=== PATIENT | female | born 1965 | race Hispanic/Latino ===

== ENCOUNTER 2019-06-18 22:21 | Emergency (ER) | payer BC, SELFPAY ==
[2019-06-19 00:35] LABS: Urine Blood NEGATIVE (NEG); Urine Glucose NEGATIVE (NEG); Urine Protein 1+ (NEG); Urine Specific Gravity >1.030 (1.005-1.030)
[2019-06-19 00:45] LABS: Urine Bacteria <20 /HPF (<20); Urine Culture Reflex Order NOT NEEDED; Urine RBC <5 /HPF (NONE SEEN)
[2019-06-19 01:45] LABS: Absolute Lymphocytes (CBC) 2.3 K/uL (0.7-4.9); Basophils % 0.3 % (0-1.3); Hematocrit 41.3 % (36.0-45.0); Lymphocytes % 33.5 % (15.3-44.8); MPV 10.1 fL (7.6-11.3); RBC Red Blood Cell Count 4.61 M/uL (3.86-4.86)
[2019-06-19 01:58] LABS: ALT/SGPT 78 U/L (12-78); AST/SGOT 45 U/L (15-37); Albumin 3.3 g/dL (3.4-5.0); Alkaline Phosphatase 108 U/L (45-117); BUN Blood Urea Nitrogen 20 mg/dL (7-18); Bicarbonate 27 mmol/L (21-32); Bilirubin Direct 0.1 mg/dL (0-0.2); Bilirubin Total 0.3 mg/dL (0.2-1.0); Glucose Level 195 mg/dL (74-106); Lipase 212 U/L (73-393); Potassium 3.7 mmol/L (3.5-5.1); Protein, Total 7.3 g/dL (6.4-8.2); Sodium Level 142 mmol/L (136-145)
--- NOTE | 2019-06-19 05:21 | ER ---
Nurse's Notes [facility] Name: Shanell Luna Age: 54 yrs Sex: Female : 1965 Arrival Date: 06/18/2019 Time: 22:24 Bed 16 Private MD: Diagnosis: Unspecified abdominal pain;Diarrhea, unspecified Presentation: 06/17 22:48 Chief complaint: Patient states: Abdominal pain for a week with nausea. Pt reports ao abdominal cramps and also c/o diarrhea. Coronavirus screen: Proceed with normal triage. Ebola Screen: Patient negative for fever greater than or equal to 101.5 degrees Fahrenheit, and additional compatible Ebola Virus Disease symptoms Patient denies exposure to infectious person. Patient denies travel to an Ebola-affected area in the 21 days before illness onset. Initial Sepsis Screen: Does the patient meet any 2 criteria? No. Patient's initial sepsis screen is negative. Does the patient have a suspected source of infection? No. Patient's initial sepsis screen is negative. Risk Assessment: Do you want to hurt yourself or someone else? Patient reports no desire to harm self or others. Onset of symptoms is unknown. 22:48 Method Of Arrival: Ambulatory ao 22:48 Acuity: AGNIESZKA 3 ao Triage Assessment: 22:54 General: Appears in no apparent distress. comfortable, Behavior is calm, cooperative, ao appropriate for age, quiet. Pain: Complains of pain in abdomen Pain does not radiate. Pain currently is 5 out of 10 on a pain scale. Neuro: Level of Consciousness is awake, alert, Oriented to person, place, time, situation, Appropriate for age. Cardiovascular: Capillary refill < 3 seconds Patient's skin is warm and dry. GI: Abdomen is non-distended. : No signs and/or symptoms were reported regarding the genitourinary system. 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 - Social history:: Smoking status: Patient denies any tobacco usage or history of. Patient uses alcohol, but reports only rare drinking. Patient/guardian denies using street drugs, IV drugs. Screenin/14 00:30 Abuse screen: Denies threats or abuse. Nutritional screening: No deficits noted. vc Tuberculosis screening: No symptoms or risk factors identified. Fall Risk None identified. Assessment: 00:30 GI: Bowel sounds present X 4 quads. Abd is soft Abd is non tender X 4 quads. vc 00:30 General: Appears in no apparent distress. comfortable, Behavior is calm, cooperative, vc appropriate for age. Pain: Complains of pain in abdomen Pain currently is 3 out of 10 on a pain scale. Quality of pain is described as sharp, stabbing, squeezing, Pain began 2-3 days ago. Neuro: Level of Consciousness is awake, alert, obeys commands. Cardiovascular: Capillary refill < 3 seconds Patient's skin is warm and dry. Respiratory: Airway is patent Respiratory effort is even, unlabored, Respiratory pattern is regular, symmetrical. : No signs and/or symptoms were reported regarding the genitourinary system. EENT: No signs and/or symptoms were reported regarding the EENT system. Derm: No signs and/or symptoms reported regarding the dermatologic system. Musculoskeletal: Circulation, motion, and sensation intact. Range of motion: intact in all extremities. 01:30 Reassessment: Patient appears in no apparent distress at this time. Patient and/or vc family updated on plan of care and expected duration. Pain level reassessed. Patient is alert, oriented x 3, equal unlabored respirations, skin warm/dry/pink. 02:17 Reassessment: Patient appears in no apparent distress at this time. Patient and/or ao family updated on plan of care and expected duration. Pain level reassessed. Waiting on results. 03:36 Reassessment: Patient appears in no apparent distress at this time. Patient is alert, ao oriented x 3, equal unlabored respirations, skin warm/dry/pink. 04:40 Reassessment: Patient appears in no apparent distress at this time. Patient and/or ao family updated on plan of care and expected duration. Pain level reassessed. Waiting on dispo orders. 05:15 Reassessment: Patient appears in no apparent distress at this time. Provider at bedside.ao 05:33 Reassessment: DC given to patient. Pt agree with POC and to follow up with PCP. ao Vital Signs: 06/17 22:48 BP 123 / 88; Pulse 97; Resp 16; Temp 98.1(TE); Pulse Ox 97% on R/A; Weight 97.52 kg; ao Height 5 ft. 4 in. (162.56 cm); Pain 8/10; 06/18 02:17 BP 106 / 60; Pulse 60; Resp 18; Pulse Ox 97% ; ao 03:30 BP 114 / 78; Pulse 62; Resp 18; Pulse Ox 98% ; ao 05:15 BP 106 / 76; Pulse 64; Resp 16; Temp 98.0; Pulse Ox 100% on R/A; ao 06/17 22:48 Body Mass Index 36.90 (97.52 kg, 162.56 cm) ao ED Course: 06/17 22:24 Patient arrived in ED. cl3 22:51 Triage completed. ao 22:54 Arm band placed on right wrist. Patient placed in an exam room, Patient notified of ao wait time. 06/18 00:29 Martha Irvin, SHAJI is Primary Nurse. vc 00:30 Patient has correct armband on for positive identification. Placed in gown. Bed in low vc position. Call light in reach. Pulse ox on. NIBP on. 00:34 Santino Ochoa MD is Attending Physician. 7 01:00 Warm blanket given. vc 01:26 Inserted saline lock: 20 gauge in left forearm, using aseptic technique. Blood vc collected. 02:10 Report given to SHAJI Johnston. vc 02:52 CT Abd/Pelvis - IV Contrast Only In Process Unspecified. EDMS 05:15 No provider procedures requiring assistance completed. ao 05:32 IV discontinued, intact, bleeding controlled, No redness/swelling at site. Pressure ao dressing applied. Administered Medications: No medications were administered Outcome: 05:20 Discharge ordered by . [facility] 05:31 Discharged to home ambulatory. ao 05:31 Condition: stable 05:31 Discharge instructions given to patient, Instructed on discharge instructions, follow up and referral plans. Demonstrated understanding of instructions, follow-up care, medications, Prescriptions given X 3. 05:34 Patient left the ED. ao Signatures: Dispatcher [facility] CenterMS Tinajero, SHAJI Johnston RN, Charde cl3 Martha Irvin RN RN Santino Cancino MD MD mh7
--- NOTE | 2019-06-19 05:21 | EDPHYS ---
Physician Documentation [facility] Name: Shanell Luna Age: 54 yrs Sex: Female : 1965 Arrival Date: 06/18/2019 Time: 22:24 Bed 16 Private MD: ED Physician Santino Ochoa HPI: 06/18 02:53 This 54 yrs old Female presents to ER via Ambulatory with complaints of mh7 Abdominal Pain. 02:53 The patient presents with abdominal pain in the lower abdomen. Onset: The mh7 symptoms/episode began/occurred 3 day(s) ago. The symptoms do not radiate. Associated signs and symptoms: Pertinent positives: diarrhea, Pertinent negatives: nausea and vomiting, anorexia, blood in stools, chest pain, constipation, dysuria, fever, headache, hematuria, nausea, palpitations, shortness of breath, vaginal discharge, vomiting, vomiting blood. The symptoms are described as achy, intermittent. Modifying factors: The symptoms are alleviated by nothing, the symptoms are aggravated by nothing. Severity of pain: At its worst the pain was moderate yesterday, in the emergency department the pain has improved moderately. 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 - Social history:: Smoking status: Patient denies any tobacco usage or history of. Patient uses alcohol, but reports only rare drinking. Patient/guardian denies using street drugs, IV drugs. ROS: 06/18 02:53 Constitutional: Negative for fever, chills, and weight loss, Eyes: Negative for injury, mh7 pain, redness, and discharge, ENT: Negative for injury, pain, and discharge, Neck: Negative for injury, pain, and swelling, Cardiovascular: Negative for chest pain, palpitations, and edema, Respiratory: Negative for shortness of breath, cough, wheezing, and pleuritic chest pain, Back: Negative for injury and pain, : Negative for injury, bleeding, discharge, and swelling, MS/Extremity: Negative for injury and deformity, Skin: Negative for injury, rash, and discoloration, Neuro: Negative for headache, weakness, numbness, tingling, and seizure, Psych: Negative for depression, anxiety, suicide ideation, homicidal ideation, and hallucinations, Allergy/Immunology: Negative for hives, rash, and allergies, Endocrine: Negative for neck swelling, polydipsia, polyuria, polyphagia, and marked weight changes, Hematologic/Lymphatic: Negative for swollen nodes, abnormal bleeding, and unusual bruising. Exam: 02:53 Constitutional: This is a well developed, well nourished patient who is awake, alert, mh7 and in no acute distress. Head/Face: Normocephalic, atraumatic. Eyes: Pupils equal round and reactive to light, extra-ocular motions intact. Lids and lashes normal. Conjunctiva and sclera are non-icteric and not injected. Cornea within normal limits. Periorbital areas with no swelling, redness, or edema. ENT: Nares patent. No nasal discharge, no septal abnormalities noted. Tympanic membranes are normal and external auditory canals are clear. Oropharynx with no redness, swelling, or masses, exudates, or evidence of obstruction, uvula midline. Mucous membranes moist. Neck: Trachea midline, no thyromegaly or masses palpated, and no cervical lymphadenopathy. Supple, full range of motion without nuchal rigidity, or vertebral point tenderness. No Meningismus. Chest/axilla: Normal chest wall appearance and motion. Nontender with no deformity. No lesions are appreciated. Cardiovascular: Regular rate and rhythm with a normal S1 and S2. No gallops, murmurs, or rubs. Normal PMI, no JVD. No pulse deficits. Respiratory: Lungs have equal breath sounds bilaterally, clear to auscultation and percussion. No rales, rhonchi or wheezes noted. No increased work of breathing, no retractions or nasal flaring. 02:53 Back: No spinal tenderness. No costovertebral tenderness. Full range of motion. 02:53 Skin: Warm, dry with normal turgor. Normal color with no rashes, no lesions, and no evidence of cellulitis. MS/ Extremity: Pulses equal, no cyanosis. Neurovascular intact. Full, normal range of motion. Neuro: Awake and alert, GCS 15, oriented to person, place, time, and situation. Cranial nerves II-XII grossly intact. Motor strength 5/5 in all extremities. Sensory grossly intact. Cerebellar exam normal. Normal gait. Psych: Awake, alert, with orientation to person, place and time. Behavior, mood, and affect are within normal limits. 02:53 Abdomen/GI: Inspection: abdomen appears normal, Bowel sounds: normal, in all quadrants, Palpation: moderate abdominal tenderness, in the suprapubic area, right lower quadrant and left lower quadrant, Rectal exam: the exam is deferred, because of patient request, Indicators: McBurney's point is not tender, Valles's sign is negative, Rovsing's sign is negative, Obturator sign is negative, Psoas sign is negative, Liver: no appreciated palpable abnormalities, Hernia: not appreciated. 02:53 : Pelvic Exam: The exam is refused by the patient/guardian. The risks and consequences are understood by the patient. Vital Signs: 06/17 22:48 BP 123 / 88; Pulse 97; Resp 16; Temp 98.1(TE); Pulse Ox 97% on R/A; Weight 97.52 kg; ao Height 5 ft. 4 in. (162.56 cm); Pain 8/10; 06/18 02:17 BP 106 / 60; Pulse 60; Resp 18; Pulse Ox 97% ; ao 03:30 BP 114 / 78; Pulse 62; Resp 18; Pulse Ox 98% ; ao 05:15 BP 106 / 76; Pulse 64; Resp 16; Temp 98.0; Pulse Ox 100% on R/A; ao 06/17 22:48 Body Mass Index 36.90 (97.52 kg, 162.56 cm) ao MDM: 00:34 Patient medically screened. mh7 05:17 Differential diagnosis: appendicitis, bowel obstruction, diverticulitis, non-specific mh7 abd pain, urinary tract infection. Data reviewed: vital signs, nurses notes, lab test result(s), radiologic studies, CT scan. Data interpreted: Pulse oximetry: on room air is 100 %. Interpretation: normal. 06/17 22:27 Order name: Urine Culture [facility] 06/17 22:27 Order name: Urine Microscopic Only; Complete Time: 05:01 06/18 00:15 Order name: Urine Dipstick--Ancillary (enter results); Complete Time: 05:01 mw2 06/18 00:52 Order name: Basic Metabolic Panel; Complete Time: 05: [facility] 06/18 00:52 Order name: CBC with Diff; Complete Time: 05: 06/18 00:52 Order name: Hepatic Function; Complete Time: 05: [facility] 06/17 22:27 Order name: Urine Dipstick-Ancillary (obtain specimen); Complete Time: 00:41 snw 06/18 00:52 Order name: Lipase; Complete Time: 05: [facility] 06/18 00:52 Order name: IV Saline Lock; Complete Time: 02:11 [facility] 06/18 00:52 Order name: Labs collected and sent; Complete Time: 02: [facility] 06/18 00:52 Order name: CT Abd/Pelvis - IV Contrast Only [facility] Administered Medications: No medications were administered Disposition: 06/19/19 05:20 Discharged to Home. Impression: Unspecified abdominal pain, Diarrhea, unspecified. - Condition is Stable. - Discharge Instructions: Abdominal Pain, Adult, Diarrhea, Adult. - Prescriptions for Bentyl 20 mg Oral Tablet - take 1 tablet by ORAL route every 6 hours As needed; 20 tablet. Cipro 500 mg Oral Tablet - take 1 tablet by ORAL route every 12 hours for 5 days; 10 tablet. Zofran 4 mg Oral Tablet - take 1 tablet by ORAL route every 12 hours As needed; 6 tablet. - Medication Reconciliation Form, Thank You Letter, Antibiotic Education, Prescription Opioid Use form. - Follow up: Private Physician; When: 1 - 2 days; Reason: Worsening of condition, Re-evaluation by your physician. - Problem is new. - Symptoms have improved. Signatures: Dispatcher [employer] EDLA Linda Cat FNP-C SPIRITUAL ADVISOR-Csnw Presotn Tinajero, RN RN ao Santino Ochoa MD MD 7 Corrections: (The following items were deleted from the chart) 05:34 05:20 06/19/2019 05:20 Discharged to Home. Impression: Unspecified abdominal pain; ao Diarrhea, unspecified. Condition is Stable. Forms are Medication Reconciliation Form, Thank You Letter, Antibiotic Education, Prescription Opioid Use. Follow up: Private Physician; When: 1 - 2 days; Reason: Worsening of condition, Re-evaluation by your physician. Problem is new. Symptoms have improved. mh7
[2019-06-19 06:26] VITALS: BP 106/76; TEMP 98; O2SAT 100
--- NOTE | 2019-06-19 12:07 | RAD REPORT ---
EXAM DESCRIPTION: Abdomen Pelvis W Contrast CLINICAL HISTORY: ABD PAIN COMPARISON: None. TECHNIQUE: CT ABDOMEN PELVIS WITH IV CONTRAST on 06/19/2019 12:52 AM CDT This exam was performed according to our departmental dose-optimization program, which includes autom ated exposure control, adjustment of the mA and/or kV according to patient size and/or use of iterati ve reconstruction technique. FINDINGS: Lower lungs are clear. Abdomen: Liver is enlarged and fatty in attenuation. There is no biliary dilatation. Gallbladder is d ecompressed. The pancreas and spleen are normal in appearance. The adrenal glands and kidneys are unr emarkable. Abdominal aorta is normal in course and caliber without aneurysm. There is no free air. There is no r etroperitoneal adenopathy.There is a small fat-containing umbilical hernia. Pelvis: There is no bowel obstruction. Urinary bladder is unremarkable. There is no free fluid. Uteru s is normal in size. Appendix is normal. Skeleton: There are no acute osseous findings. No suspicious bony lesions. IMPRESSION: No acute process. Electronically signed by: Alex Morillo MD 06/19/2019 2:59 AM CDT Due to temporary technical issues with the PACS/Fluency reporting system, reports are being signed by the in house radiologist as a courtesy to ensure prompt reporting. The interpreting radiologist is f ully responsible for the content of the report.
== END 2019-06-19 05:34 | disposition home or self-care (01) ==
LOC: ER 22:21
DX: R19.7 Diarrhea, unspecified (principal); I10 Essential (primary) hypertension; E11.9 Type 2 diabetes mellitus without complications
CPT/HCPCS: 36415; 74177; 80048; 80076; 81003; 81015; 83690; 85025; 87086; 87088; 99284; Q9967

== ENCOUNTER 2022-11-23 06:30 | Day surgery (SDC) | payer OTHER, SELFPAY ==
[2022-11-20 09:29] LABS: Absolute Lymphocytes (CBC) 2.1 K/uL (0.7-4.9); Lymphocytes % 34.7 % (15.3-44.8); MCV 88.4 fL (80-100); MPV 9.2 fL (7.6-11.3); Platelets 143 thou/uL (152-406); RBC Red Blood Cell Count 5.09 M/uL (3.86-4.86)
[2022-11-20 09:35] LABS: Protime INR 0.97
--- NOTE | 2022-11-20 12:24 | RAD REPORT ---
EXAM DESCRIPTION: RAD - Chest Pa And Lat (2 Views) - 11/20/2022 9:34 am CLINICAL HISTORY: Pre op pending heart catheterization. Hypertension COMPARISON: Chest Single View dated 11/13/2021 TECHNIQUE: PA and lateral views of the chest were obtained. FINDINGS: The lungs are clear. Heart size is normal and central vasculature is within normal limits. No pleural effusion or pneumothorax seen. No acute bony finding noted. IMPRESSION: No acute cardiopulmonary process.
--- NOTE | 2022-11-21 11:22 | EKG ---
Test Date: 2022-11-20 Test Time: 09:15:45 Shoe Stitcher: ILENE MEASUREMENT RESULTS: Intervals: Rate: 72 ME: 134 QRSD: 92 QT: 342 QTc: 374 [place]: P: 26 ME: 134 QRS: -41 T: 14 INTERPRETIVE STATEMENTS: Normal sinus rhythm Left axis deviation Minimal voltage criteria for LVH, may be normal variant Abnormal ECG No previous ECG available for comparison Electronically Signed On 11-21-22 11:18:56 CDT by Jas Higginbotham
[~2022-11-23 06:30] MED LIST: HEPA 1000U/500MLS 0 UNIT/0 ML BAG IV ONE; LIDOCAINE 1% 20 ML MDV ONE
[2022-11-23] MEDS ORDERED: HEPA 1000U/500MLS 2,000 UNIT/1,000 ML BAG IV ONE (06:59)
[2022-11-23] MEDS ORDERED: LIDOCAINE 1% 20 ML MDV ONE (06:59)
[2022-11-23] MEDS ORDERED: MIDAZOLAM HCL 2 MG/2 ML INJ ONE (07:00)
[2022-11-23] MEDS ORDERED: HEPARIN 10,000 UNIT/10 ML VIAL IV ONE (07:00)
[2022-11-23] MEDS ORDERED: VERAPAMIL HCL 10 MG/4 ML VIAL IV ONE (07:00)
[2022-11-23] MEDS ORDERED: HEPARIN 5000 UNIT/ML 1 ML VIAL ONE (07:00)
[2022-11-23] MEDS ORDERED: FENTANYL CITR 100 MCG/2 ML ONE (07:00)
[2022-11-23] MEDS ORDERED: NITROGLYCERIN/D5W 50 MG/250 ML BTL IV ONE (07:01)
[2022-11-23] MEDS ORDERED: NA CHLORIDE 0.9% 500 ML ONE (07:05)
[2022-11-23 08:10] VITALS: TEMP 98.2
--- NOTE | 2022-11-23 08:17 | OP ---
Date of Procedure: 11/23/2022 Surgeon: REGINALDO BONILLA Procedures Performed: 1.Selective coronary angiogram. 2.Left heart catheterization. Indication: Chest pain with abnormal stress test suggestive of unstable angina. Access: Right radial artery, 6-Montenegr[place], closed with TR band. Complications: None. Bleeding: Less than 20 mL. Anesthesia: Sedation is none due to low blood pressure. Description Of Procedure: After risks, benefits, and alternatives were explained, the patient agreed to procedure and signed informed consent. The patient was brought into cardiac catheterization labo ratory, prepped and draped in usual sterile fashion. Then, I accessed right radial artery using AIM atric micropuncture kit. Placed 6-[place] 5-Mont[place]grin [place] 4 catheter into aortic root, over J-wire, engaged left main and the right coronary artery, took standard views. Catheter was pushed o aris the wire into the LV, measured the LVEDP. Pullback not recording great and removed the catheter and sheath and placed TR band with good hemostasis. Findings: 1.Left main normal. 2.LAD moderate size vessels with widely patent proximal LAD stent. No disease otherwise. Diagonal branches are free of disease. 3.Left circumflex is moderate size and is normal. 4.RCA is large vessel, dominant and normal. 5.Normal LVEDP at 10 mmHg. Conclusion: 1.Widely patent proximal LAD stent and no coronary artery disease elsewhere. 2.Normal LVEDP. Plan: Medical management. SR/MODL Voice ID: [id number] Report ID: [id number]
[2022-11-23 08:33] VITALS: O2SAT 98
[2022-11-23 09:17] VITALS: BP 113/68
== END 2022-11-23 09:30 | disposition home or self-care (01) ==
LOC: CCL 06:30
PROVIDERS: ATTEND Internal Medicine
PROC: 4A023N7 Measurement of Cardiac Sampling and Pressure, Left Heart, Percutaneous Approach (ICD-10-PCS; principal; 2022-11-23)
PROC: B2111ZZ Fluoroscopy of Multiple Coronary Arteries using Low Osmolar Contrast (ICD-10-PCS; 2022-11-23)
DX: I25.10 Atherosclerotic heart disease of native coronary artery without angina pectoris (principal); I10 Essential (primary) hypertension; E78.2 Mixed hyperlipidemia; E11.9 Type 2 diabetes mellitus without complications; Z95.5 Presence of coronary angioplasty implant and graft; Z79.02 Long term (current) use of antithrombotics/antiplatelets; Z79.84 Long term (current) use of oral hypoglycemic drugs; Z79.899 Other long term (current) drug therapy
CPT/HCPCS: 93005; 85025; 80048; 36415; 83721; 85610; 82947; 85730; 71046; 93458; J1644; J2001; J7040; J2250; J3010

== ENCOUNTER 2024-01-20 09:09 | Emergency (ER) | payer OTHER ==
--- OUTSIDE RECORDS SUMMARY | 2024-01-20 09:13 | XMS REPORT | Continuity of Care Document ---
Author Name Unknown Address [address] [facility] [place] [address] [facility] thconnect Address [address] [facility] [place] [address] Care Team Providers Care Strap Sewer Name Role Phone PCP, PATIENT DOES NOT HAVE A Primary Care Physic miguel Unavailable Carlos Meza DO Attending Clinician [phone] CARLOS MEZA Attending Clinician Unavailable CARLOS MEZA Admitting Clinician Unavailable Payers Payer Name Policy Type Policy Number Effective Date Expirati on Date Source FORMERLY [facility] [id number] 2021 00:00:00 Problems Condition Name Condition Details Condition Category Status Onset Date Resolution Date Last Treatment Date Treating Clinician Comments Source Morbid obesity Morbid obesity Disease Active 05-11 00:00: 00 [facility] Contracept kat management Contracept kat management Disease Active 05-11 00:00: 00 [facility] Need for Tdap vaccinatio n Need for Tdap vaccinatio n Disease Active 05-11 00:00: 00 [facility] Tobacco use disorder Tobacco use disorder Disease Active 05-11 00:00: 00 [facility] Essential hypertensi on, benign Essential hypertensi on, benign Disease Active 05-11 00:00: 00 [facility] H/O tubal ligation H/O tubal ligation Disease Active 2016-0 4-06 00:00: 00 [facility] Allergies, Adverse Reactions, Alerts Allergy Name Allergy Type Status Severity Reaction(s) Onset Date Inactive Date Treating Clinician Comments Source NO KNOWN ALLERGIE S Drug Class Active [facility] Social History Social Habit Start Date Stop Date Quantity Comments Source History of tobacco use Light tobacco smoker [facility] Exposure to SARS-CoV-2 (event) 2021-12-03 00:00:00 2021-12-13 12:01:00 Not sure [facility] Alcohol intake 2015-06-30 00:00:00 2015-06-30 00:00:00 0 /d [facility] Tobacco use and exposure 2015-05-03 00:00:00 2015-05-03 00:00:00 Smokeless tobacco non-user [facility] Sex Ass[birth year] At 1965 00:00:00 1965 00:00:00 [facility] Smoking Status Start Date Stop Date Source Light tobacco smoker 2015-05-03 00:00:00 [facility] Medications Ordered Medication Name Filled Medication Name Start Date Stop Date Current Medication? Ordering Clinician Indication Dosage Frequency Signature (SIG) Comments Components Source chlorphenir amine 4 mg tablet 2021-02 00:00: 00 Yes [id number] 4mg Take 1 tablet by mouth every 6 (six) hours as needed for Allergies or Runny nose. [facility] calcium/mag nesium/zinc (CALCIUM-MA GNESUIUM-ZI NC) 333-133-5 mg Tab 2021-02 00:00: 00 Yes [id number] 1{each} Take 1 Each by mouth daily. [facility] benzonatate 100 mg capsule 2021-02 00:00: 00 Yes [id number] 100mg Take 1 capsule by mouth 3 (three) times daily as needed for Cough. [facility] vitamin D3-folic acid 125 mcg (5,000 unit)-1 mg Tab 2021-02 00:00: 00 01-13 05:59 :00 No [id number] 1{tbl} Take 1 tablet by mouth daily for 30 days. [facility] metFORMIN (GLUCOPHAGE ) 500 mg tablet 2016-0 5-25 10:46: 18 Yes 500mg Take 500 mg by mouth 2 (two) times daily with meals. [facility] Vital Signs Vital Name Observation Time Observation Value Comments Elie simms Systolic blood pressure 2021-12-13 18:01:00 143 mm[Hg] [facility] Diastolic blood pressure 2021-12-13 18:01:00 88 mm[Hg] [facility] Heart rate 2021-12-13 18:01:00 83 /min [facility] Body temperature 2021-12-13 18:01:00 36.61 Kayleigh [facility] Respiratory rate 2021-12-13 18:01:00 18 /min [facility] Body height 2021-12-13 18:01:00 162.6 cm [facility] Body weight 2021-12-13 18:01:00 102.513 kg [facility] BMI 2021-12-13 18:01:00 38.79 kg/m2 [facility] Oxygen saturation in Arterial blood by Pulse oximetry 2021-12-13 18:01:00 98 /min [facility] Procedures Procedure Date / Time Performed Performing Clinicia n Source XR CHEST 1 VW 2021-12-13 18:57:53 Carlos Meza [facility] TROPONIN I 2021-12-13 18:34:00 Carlos Meza [facility] COMP. METABOLIC PANEL (61438) 2021-12-13 18:34:00 Carlos Meza [facility] CBC WITH DIFF 2021-12-13 18:34:00 Singer [facility] RAPID INFLUENZA A/B 2021-12-13 18:34:00 Moi Meza [facility] N-TERMINAL PRO-BNP 2021-12-13 18:34:00 Singer Carlos [facility] COVID-19 (ID NOW RAPID TESTING) 2021-12-13 18:34:00 Carlos Meza [facility] CONSENT/REFUSAL FOR DIAGNOSIS AND TREATMENT 2021-12-13 17:57:40 Doctor Unassigned, [place] [facility] Encounters Start Date/Time End Date/Time Encounter Type Admission Type Attending [facility] Facility Care Department Encounter ID Source 2021-12-13 12:02:00 2021-12-13 14:03:00 Emergency Carlos Meza [facility] [id number] [facility] 2021-12-13 12:02:00 2021-12-13 14:03:00 Emergency X CARLOS MEZA [facility] ERT [id number] [facility] 2019-09-11 00:00:00 2019-09-11 00:00:00 Outpatient [facility] [id number] [facility] Results Test Description Test Time Test Comments Results Result Co mments Source [facility] [id number] 19:37:04* Test Item Value Reference Range Interpretation Comme nts NT-proBNP (test code = 9229549966) 212 pg/mL See_Comment H [Automated message] The system which generated this result transmitted reference range: <=125. The reference range was not used to interpret this result as normal/abnormal. KELSI (test code = KELSI) Biotin has been reported to cause a negative bias, interpret results relative to patient's use of biotin. Lab Interpretation (test code = 44941-3) [facility] (10466)2021-12-13 19:31:04* Test Item Value Reference Range Interpretation Comme nts NA (test code = 7601111135) 141 mmol/L 135-145 K (test code = 2738652098) 3.4 mmol/L 3.5-5.0 L CL (test code = 3773471353) 105 mmol/L 98-108 CO2 TOTAL (test code = 2648619732) 25 mmol/L 23-31 AGAP (test code = 1918047092) 2-16 BUN (test code = 7347486071) 9 mg/dL 7-23 GLUCOSE (test code = 8856162887) 309 mg/dL 70-110 H CREATININE (test code = 1049884583) 0.40 mg/dL 0.50-1.04 L TOTAL BILI (test code = 1878715948) 0.8 mg/dL 0.1-1.1 CALCIUM (test code = 0518179256) 8.9 mg/dL 8.6-10.6 T PROTEIN (test code = 8466640860) 6.2 g/dL 6.3-8.2 L ALBUMIN (test code = 0369762246) 3.8 g/dL 3.5-5.0 ALK PHOS (test code = 6553985287) 108 U/L 34-122 ALTv (test code = 1742-6) 30 U/L 5-35 AST(SGOT) (test code = 8098123217) 34 U/L 13-40 eGFR (test code = 2873828842) mL/min/1.73m2 KELSI (test code = KELSI) Association of Glomerular Filtration Rate (GFR) and Staging of Kidney Disease* + --+ --+ ------+| GFR (mL/min/1.73 m2) ?| With Kidney Damage ?| ?Without Kidney Damage+ --------+ --------+ +| ?>90 ?| ?Stage one ?| ? Normal ?+ ---+ ---+ -------+| ?60-89 ?| ?Stage two ?| ? Decreased GFR ? + --+ --+ ------+| ?30-59 ?| ?Stage three ?| ? Stage three ? + --+ --+ ------+| ?15-29 ?| ?Stage four ? | ? Stage four ?+ ---+ ---+ -------+| ?<15 (or dialysis) ? ?| ?Stage five ? | ? Stage five ?+ ---+ ---+ -------+ *Each stage assumes the associated GFR level has been in effect for at least three months. ?Stages 1 to 5, with or without kidney disease, indicate chronic kidney disease. Notes: Determination of stages one and two (with eGFR >59mL/min/1.73 m2) requires estimation of kidney damage for at least three months as defined by structural or functional abnormalities of the kidney, manifested by either:Pathological abnormalities or Markers of kidney damage (including abnormalities in the composition of the blood or urine or abnormalities in imaging tests). Lab Interpretation (test code = 70229-1) Abnormal [facility] WITH [id number] 18:50:40* Test Item Value Reference Range Interpretation Comme nts WBC (test code = 6690-2) See_Comment [Automated messa ge] The system which generated this result transmitted reference range: 4.30 - 11.10 10*3/?L. The reference range was not used to interpret this result as normal/abnormal. RBC (test code = 789-8) See_Comment [Automated messa ge] The system which generated this result transmitted reference range: 3.93 - 5.25 10*6/?L. The reference range was not used to interpret this result as normal/abnormal. HGB (test code = 718-7) 13.6 g/dL 11.6-15.0 HCT (test code = 4544-3) 38.2 % 35.7-45.2 MCV (test code = 787-2) 84.9 fL 80.6-95.5 MCH (test code = 785-6) 30.2 pg 25.9-32.8 MCHC (test code = 786-4) 35.6 g/dL 31.6-35.1 H RDW-SD (test code = 66907-4) 36.6 fL 39.0-49.9 L RDW-CV (test code = 788-0) 11.9 % 12.0-15.5 L PLT (test code = 777-3) See_Comment [Automated messa ge] The system which generated this result transmitted reference range: 166 - 358 10*3/?L. The reference range was not used to interpret this result as normal/abnormal. MPV (test code = 46363-4) 11.2 fL 9.5-12.9 NRBC/100 WBC (test code = 0579336564) See_Comment [Automated [employer] ssage] The system which generated this result transmitted reference range: 0.0 - 10.0 /100 WBCs. The reference range was not used to interpret this result as normal/abnormal. NRBC x10^3 (test code = 6977386856) See_Comment [Automated messa ge] The system which generated this result transmitted reference range: 10*3/?L. The reference range was not used to interpret this result as normal/abnormal. GRAN MAT (NEUT) % (test code = 770-8) 67.2 % IMM GRAN % (test code = 5454519315) 0.40 % LYMPH % (test code = 736-9) 21.6 % MONO % (test code = 5905-5) 5.5 % EOS % (test code = 713-8) 4.9 % BASO % (test code = 706-2) 0.4 % GRAN MAT x10^3(ANC) (test code = 3617996910) 3.30 10*3/uL 1.88-7.09 IMM GRAN x10^3 (test code = 1482089731) 0.00-0.06 LYMPH x10^3 (test code = 731-0) 1.06 10*3/uL 1.32-3.29 L MONO x10^3 (test code = 742-7) 0.27 10*3/uL 0.33-0.92 L EOS x10^3 (test code = 711-2) 0.24 10*3/uL 0.03-0.39 BASO x10^3 (test code = 704-7) 0.01-0.07 Lab Interpretation (test code = 44721-1) [facility]normal [facility] J[facility] [id number] 14:45:26- SCR MAMM BILATERAL JALEEL CAD DIGITALBILATERAL DIGITAL SCREENING MAMMOGRAM 3D/2D WITH CAD: 05/15/2018CLINICAL: Asymptomatic. Digital breast tomosynthesis was performed in addition to routine CC and MLO views. Current mammographic images were evaluated by either a [employer] M-Vu or an [employer] version 7.2 computer aided detection system. Comparison is made to exam dated 06/17/2015 mammogram - [facility]-Radiology File Room. There are scattered fibroglandular tissues in both breasts. There is a benign mass in the right breast, stable since 2016. No suspicious mass, architectural distortion, malignant type calcification, or lymph node abnormality detected. Breast architecture is stable compared to prior exams.IMPRESSION: BENIGNThere is no mammographic evidence of malignancy. Resume annual screening mammography in one year. Kandace Rodriguez M.D. cc/:05/27/2018 14:45:26 Entry: cc - 05/28/2018 12:02:48copy to: Leona DURÁN, [facility], [facility] [address], ph: [phone], fax: [phone] Technologist: Rola French MM, [facility] Mammographyletter sent: BIRADS 1-2 Normal Mammogram BI-RADS: 2 Benign"
--- NOTE | 2024-01-20 09:56 | RAD REPORT ---
Procedure: Chest Single View HISTORY: Chest pain COMPARISON: 2022 FINDINGS: The lungs appear clear of acute infiltrate. No significant pleural effusion noted. The heart is normal size. IMPRESSION: No acute abnormality is displayed.
[2024-01-20 10:08] LABS: Absolute Eosinophils 0.2 K/uL (0-0.5); Absolute Lymphocytes (CBC) 1.7 K/uL (0.7-4.9); Absolute Monocytes 0.4 K/uL (0.1-1.3); Absolute Neutrophil 2.8 K/uL (1.8-8.0); Basophils % 0.4 % (0-1.3); Eosinophils % 3.3 % (0-4.4); Hematocrit 42.5 % (36.0-45.0); Hemoglobin 14.2 g/dL (12.0-15.0); Lymphocytes % 33.4 % (15.3-44.8); MCH 29.7 pg (27.0-35.0); MCHC 33.4 g/dL (32.0-36.0); MPV 10.4 fL (7.6-11.3); Monocytes % 7.3 % (3.3-12.3); Neutrophils % 55.6 % (41.7-73.7); Platelets 132 thou/uL (152-406); RBC Red Blood Cell Count 4.78 M/uL (3.86-4.86); Red Cell Distribution Width 12.9 % (12.1-15.2)
[2024-01-20 10:13] LABS: PT Prothrombin Time 10.6 SECONDS (9.4-12.5); PTT, Activated Partial Thromb 30.4 SECONDS (24.3-36.9); Protime INR 0.94
[2024-01-20 10:25] LABS: Albumin 3.3 g/dL (3.4-5.0); Anion Gap 8.6 mEq/L (5.0-15.0); Bilirubin Total 0.8 mg/dL (0.2-1.0); Globulin 3.4 g/dL (2.3-3.5); Potassium 3.6 mEq/L (3.5-5.1); Protein, Total 6.7 g/dL (6.4-8.2)
--- NOTE | 2024-01-20 10:57 | RAD REPORT ---
EXAM: CT brain without contrast HISTORY: Numbness COMPARISON: None TECHNIQUE: Multiple contiguous axial images were obtained and a CT of the brain without contrast.. Sagittal and coronal reconstruction performed. Automated exposure control, adjustment of the mA and/or kV according to patient size, and/or iterative reconstruction. Unless otherwise specified, incidental f indings do not require dedicated imaging follow-up FINDINGS: An intracranial bleed is not seen Ventricles are normal caliber No extra-axial fluid collection noted No significant hypodensity within the brain Small amount of fluid within the left maxillary sinus may indicate acute sinusitis. IMPRESSION: No acute intracranial abnormality noted. If the patient continues to have symptoms to suggest an acute intracranial abnormality then MRI of th e brain would be recommended.
--- NOTE | 2024-01-20 11:13 | RAD REPORT ---
EXAMINATION: CTA HEAD CLINICAL INDICATION: Numbness TECHNIQUE: Axial CT images were obtained through the head after 100 cc Isovue-370 intravenous contras t utilizing angiographic protocol with 3D post-processing (maximum intensity projection images, volume rendered images and/or shaded surface rendered images). One or more of the following dose red uction techniques were used: Automated exposure control, adjustment of the mA and/or kV according to patient size, and/or iterative reconstruction. Unless otherwise specified, incidental findings do not require dedicated imaging follow-up. COMPARISON: None FINDINGS: Distal internal carotid, basilar, anterior cerebral, middle cerebral and posterior cerebral arteries do not demonstrate a significant stenosis An aneurysm not noted. No large vessel occlusion IMPRESSION: No acute vascular abnormality displayed
--- NOTE | 2024-01-20 11:14 | RAD REPORT ---
EXAMINATION: Neck Angio CLINICAL INDICATION: Numbness TECHNIQUE: Axial CT images were obtained from the aortic arch to the skull base after intravenous adm inistration of 100 cc Isovue-370 utilizing angiographic protocol. Multiplanar reformats, as well as 3D post-processing (maximum intensity projection images, volume rendered images and/or shaded surface rendered images) were generated and reviewed. One or more of the following dose reduction techniques were used: Automated exposure control, adjustment of the mA and/or kV according to patient size, and/or iterative reconstruction. Unless otherwise specified, incidental findings do not require dedicated imaging follow-up. COMPARISON: No prior exam. FINDINGS: The visualized aortic arch and great vessels do not demonstrate a significant abnormality Evaluation of a portion of the proximal right vertebral artery is limited secondary to adjacent dense opacification of contrast within the and adjacent vein. Remainder of the right vertebral artery unremarkable. Left vertebral artery unremarkable Common carotid, internal carotid and external carotid arteries bilaterally unremarkable Methods for NASCET criteria: Mild stenosis, 0% to 49%; Moderate stenosis 50% to 69%; Severe stenosis, 70% to 99% IMPRESSION: Limited evaluation of a portion of the right vertebral artery. Otherwise, unremarkable exam
--- NOTE | 2024-01-20 12:26 | ER ---
Nurse's Notes [facility] Name: Shanell Hernandez Age: 58 yrs Sex: Female : 1965 Arrival Date: 01/20/2024 Time: 09:09 Bed 15 Private MD: Diagnosis: Radiculopathy, cervical region;Acute maxillary sinusitis Presentation: 01/19 09:23 Chief complaint: Patient states: L side of body feels numb for 1 week, worse since ll1 yesterday. + NICOLE also. Gait steady. Coronavirus screen: Client denies travel out of the [place] in the last 14 days. At this time, the client does not indicate any symptoms associated with coronavirus-19. Ebola Screen: Patient denies travel to an Ebola-affected area in the 21 days before illness onset. Initial Sepsis Screen: Does the patient meet any 2 criteria? No. Patient's initial sepsis screen is negative. Does the patient have a suspected source of infection? No. Patient's initial sepsis screen is negative. Risk Assessment: Do you want to hurt yourself or someone else? Patient reports no desire to harm self or others. Onset of symptoms was January 13, 2024. 09:23 Method Of Arrival: Ambulatory ll1 09:23 Acuity: AGNIESZKA 3 ll1 Triage Assessment: 09:23 General: Appears in no apparent distress. Behavior is calm, cooperative, appropriate ll1 for age. Pain: Complains of pain in head Pain currently is 5 out of 10 on a pain scale. Quality of pain is described as aching, Pain began 1 week. Neuro: Reports headache numbness in left arm and left leg. 12:00 Pain: Also complains of no other associated symptoms. iw Historical: - Allergies: 09:23 No Known Allergies; ll1 - PMHx: 09:23 Diabetes - NIDDM; Hyperlipidemia; Hypertension; ll1 - Immunization history:: Adult Immunizations up to date. - Infectious Disease History:: Denies. - Social history:: Smoking status: Patient denies any tobacco usage or history of. Screenin:45 [facility] ED Fall Risk Assessment (Adult) History of falling in the last 3 months, db including since admission No falls in past 3 months (0 pts) Confusion or Disorientation No (0 pts) Intoxicated or Sedated No (0 pts) Impaired Gait No (0 pts) Mobility Assist Device Used No (0 pt) Altered Elimination No (0 pt) Score/Fall Risk Level 0 - 2 = Low Risk Oriented to surroundings, Maintained a safe environment. Abuse screen: Denies threats or abuse. Denies injuries from another. Nutritional screening: No deficits noted. Tuberculosis screening: No symptoms or risk factors identified. 11:27 [place] Swallow Protocol Exclusion Criteria: Exclusion Criteria Result: Proceed Brief iw Cognitive Screen What is your name? Normal, Where are you right now? Normal, What year is it? Normal. Oral Mechanism Examination Facial Symmetry: Normal, Motion: Normal, Lip Closure: Normal, Oral Mechanism Result: Normal. 3 oz Water Swallow Challenge: Pt able to drink all water without stopping, coughing, choking or throat clearing: Yes Result: PASS. Assessment: 09:45 Reassessment: Patient appears in no apparent distress at this time. Patient and/or db family updated on plan of care and expected duration. Pain level reassessed. Patient is alert, oriented x 3, equal unlabored respirations, skin warm/dry/pink. General: Appears in no apparent distress. comfortable. Pain: Denies pain. Neuro: Level of Consciousness is awake, alert, obeys commands, Oriented to person, place, time, situation. Respiratory: Airway is patent Respiratory effort is even, unlabored, Respiratory pattern is regular, symmetrical. 11:29 General: Appears in no apparent distress. Behavior is calm, cooperative. Pain:. Neuro: iw Level of Consciousness is awake, alert, obeys commands, Oriented to person, place, time, situation, Pmp are equal bilaterally Moves all extremities. Speech is normal, Facial symmetry appears normal, Numbness in anterior aspect of left shoulder, left hand and posterior aspect of left shoulder paresthesias in forehead, left ear, left latter-day, left occipital area and left base of the skull. GI: Abdomen is non-distended. Derm: Skin is intact, is healthy with good turgor. Musculoskeletal: Range of motion: intact in all extremities. 13:16 Reassessment: Patient appears in no apparent distress at this time. Patient and/or iw family updated on plan of care and expected duration. Pain level reassessed. Patient is alert, oriented x 3, equal unlabored respirations, skin warm/dry/pink. Vital Signs: 09:23 BP 137 / 87; Pulse 70; Resp 17; Temp 97.3(O); Pulse Ox 97% on R/A; Height 5 ft. 4 in. ; ll1 Pain 5/10; 09:45 BP 187 / 95; Pulse 68; Resp 18; Pulse Ox 97% ; db 11:51 BP 124 / 86; Pulse 65; Resp 16; Pulse Ox 95% on R/A; iw 13:16 BP 128 / 64; Pulse 65; Resp 16; Pulse Ox 98% on R/A; iw 09:23 Pain Scale: Adult ll1 ED Course: 09:13 Patient arrived in ED. al6 09:14 Juan Daniel Starr FNP-C is PHCP. dr5 09:14 Ventura Anne MD is Attending Physician. dr5 09:15 Arm band placed on Patient placed in an exam room, on a stretcher. ll1 09:25 Triage completed. ll1 09:45 Yeni Benites, RN is Primary Nurse. db 09:45 Patient has correct armband on for positive identification. Bed in low position. Call db light in reach. Side rails up X 1. Client placed on continuous cardiac and pulse oximetry monitoring. NIBP monitoring applied. psychiatric secretary on. Pulse ox on. NIBP on. Warm blanket given. Pillow given. 09:45 EKG done, by ED staff. tm3 09:50 Chest Single View XRAY In Process Unspecified. EDMS 10:01 Initial lab(s) drawn, by me, sent to lab. Inserted saline lock: 20 gauge in right tm3 antecubital area, using aseptic technique. 10:[address] via stretcher. db 10:48 CT Head Brain wo Cont In Process Unspecified. EDMS 10:50 CT Head Angio In Process Unspecified. EDMS 10:50 CT Neck Angio In Process Unspecified. EDMS 10:58 Jeanie Blum, RN is Primary Nurse. iw 13:16 No provider procedures requiring assistance completed. IV discontinued, intact, iw bleeding controlled, No redness/swelling at site. Pressure dressing applied. Administered Medications: No medications were administered Medication: 09:45 VIS not applicable for this client. db Outcome: 12:26 Discharge ordered by . dr5 13:17 Discharged to home ambulatory, iw 13:17 Condition: good 13:17 Discharge instructions given to patient, Instructed on discharge instructions, follow up and referral plans. Demonstrated understanding of instructions, follow-up care, medications, Prescriptions given X 3, 13:19 Patient left the ED. iw Signatures: Dispatcher [employer] EDMS Mc Tristani tm3 Jeanie Blum RN RN Malorie Lanza RN RN ll1 Yeni Benites, RN RN db Ro, Juan Daniel, BOAT MECHANIC-C BOAT MECHANIC-Cdr5 Reena Zhang
--- NOTE | 2024-01-20 12:26 | EDPHYS ---
Physician Documentation [facility] Name: Shanell Hernandez Age: 58 yrs Sex: Female : 1965 Arrival Date: 01/20/2024 Time: 09:09 Bed 15 Private MD: ED Physician Ventura Anne HPI: 01/19 09:33 This 58 yrs old Female presents to ER via Ambulatory with complaints of left dr5 side numbness, Headache. 09:33 Onset: The symptoms/episode began/occurred Numbness started 01/17/24 that is dr5 intermittent. She took ASA yesterday and numbness resolved.. Patient is a 48-year-old female with history of diabetes, hypertension, hyperlipidemia, cardiac stent coming in with left-sided shoulder numbness rating into the left fingers that started last . Patient reports that it resolved yesterday after taking aspirin, and came back this morning or worse with left shoulder pain and numbness radiating into the left fingers as well as rating down to her left toes. Patient denies dizziness. Patient reports intermittent headache, chest pain, cough.. 09:33 Patient is currently taking aspirin and Plavix daily. dr5 Historical: - Allergies: 09:23 No Known Allergies; ll1 - PMHx: 09:23 Diabetes - NIDDM; Hyperlipidemia; Hypertension; ll1 - Immunization history:: Adult Immunizations up to date. - Infectious Disease History:: Denies. - Social history:: Smoking status: Patient denies any tobacco usage or history of. ROS: 09:33 Constitutional: as per hpi dr5 Exam: 09:33 Constitutional: This is a well developed, well nourished patient who is awake, alert, dr5 and in no acute distress. Head/Face: Normocephalic, atraumatic. Eyes: Pupils equal round and reactive to light, extra-ocular motions intact. Lids and lashes normal. Conjunctiva and sclera are non-icteric and not injected. Cornea within normal limits. Periorbital areas with no swelling, redness, or edema. Chest/axilla: Normal chest wall appearance and motion. Nontender with no deformity. No lesions are appreciated. Cardiovascular: Regular rate and rhythm with a normal S1 and S2. Normal PMI, no JVD. No pulse deficits. Respiratory: Lungs have equal breath sounds bilaterally, clear to auscultation. No rales, rhonchi or wheezes noted. No increased work of breathing, no retractions or nasal flaring. 09:33 Neuro: Orientation: is normal, appropriate for stated age, Mentation: is normal, appropriate for stated age, Memory: is normal, immediate memory is intact, appropriate for stated age, Cranial nerves: grossly normal, no acute changes, CN II- XII are normal as tested, Cerebellar function: is grossly normal, no acute changes, Motor: is normal, Sensation: is normal, Gait: is steady, 12:27 Musculoskeletal/extremity: Extremities: ROM: no acute changes, intact in all dr5 extremities, Circulation is intact in all extremities. Tenderness to palpation over left shoulder. 5/5 strength of left arm. NVI. 2+ radial pulses on left arm. No drift. Vital Signs: 09:23 BP 137 / 87; Pulse 70; Resp 17; Temp 97.3(O); Pulse Ox 97% on R/A; Height 5 ft. 4 in. ; ll1 Pain 5/10; 09:45 BP 187 / 95; Pulse 68; Resp 18; Pulse Ox 97% ; db 11:51 BP 124 / 86; Pulse 65; Resp 16; Pulse Ox 95% on R/A; iw 13:16 BP 128 / 64; Pulse 65; Resp 16; Pulse Ox 98% on R/A; iw 09:23 Pain Scale: Adult ll1 MDM: 09:19 Medical Screening Exam initiated dr5 12:27 Differential diagnosis: viral Infection, bacterial infection, URI, CVA, TIA, Cervical dr5 Radiculopathy. Data reviewed: vital signs, nurses notes. I considered the following discharge prescriptions or medication management in the emergency department Medications were administered in the Emergency Department. See MAR. Care significantly affected by the following chronic conditions: Diabetes, Hypertension, Hyperlipidemia. Care significantly affected by the following Social Determinants of Health: Poor access to healthcare and/or lack of insurance, Poor access to transportation, Inadequate housing, Problems related to employment. Counseling: I had a detailed discussion with the patient and/or guardian regarding the historical points, exam findings, and any diagnostic results supporting the discharge/admit diagnosis, the presence of at least one elevated blood pressure reading (>120/80) during this emergency department visit, lab results, radiology results, the need for outpatient follow up, for definitive care, a family practitioner, a neurologist, to return to the emergency department if symptoms worsen or persist or if there are any questions or concerns that arise at home. ED course: court interpreter used on initial assessment and discharge. All labs and CT results went over with patient. Printed out all results and gave to patient to take to primary care doctor. Will cover sinusitis found on CT with Augmentin. Will trial short course of low-dose steroids and muscle relaxers to help with left-sided pinched nerve. All questions answered. Patient reports she is feeling much better without numbness... 01/19 09:31 Order name: CBC with Diff; Complete Time: 10:24 dr5 01/19 09:31 Order name: High Sensitivity Troponin; Complete Time: 10: dr5 01/19 09:31 Order name: Protime (+inr); Complete Time: 10:24 dr5 01/19 09:31 Order name: Ptt, Activated; Complete Time: 10:24 dr5 01/19 09:31 Order name: CMP; Complete Time: 10: dr5 01/19 10:11 Order name: Glucose, Ancillary Testing; Complete Time: 10:24 EDSC 01/19 09:31 Order name: CT Head Angio; Complete Time: 11:24 dr5 01/19 09:31 Order name: CT Neck Angio; Complete Time: 11:24 dr5 01/19 09:31 Order name: CT Head Brain wo Cont; Complete Time: 11:06 dr5 01/19 09:31 Order name: Chest Single View XRAY; Complete Time: 09:58 dr5 01/19 09:31 Order name: Cardiac monitoring; Complete Time: 10:20 dr5 01/19 09:31 Order name: EKG - Nurse/Tech; Complete Time: 09:45 dr5 01/19 09:31 Order name: IV Saline Lock; Complete Time: 10:20 dr5 01/19 09:31 Order name: Labs collected and sent; Complete Time: 10:20 dr5 01/19 09:31 Order name: O2 Per Protocol; Complete Time: 10:20 dr5 01/19 09:31 Order name: O2 Sat Monitoring; Complete Time: 10:20 dr5 01/19 09:31 Order name: Stroke Swallow Screen; Complete Time: 11:27 dr5 Administered Medications: No medications were administered Disposition Summary: 01/20/24 12:26 Discharge Ordered Notes: Location: Home dr5 Condition: Stable dr5 Diagnosis - Radiculopathy, cervical region dr5 - Acute maxillary sinusitis dr5 Followup: dr5 - With: Emergency Department - When: As needed - Reason: Worsening of condition Followup: dr5 - With: Private Physician - When: 1 - 2 days - Reason: Recheck today's complaints, Continuance of care, Re-evaluation by your physician Discharge Instructions: - Discharge Summary Sheet dr5 - Pinched Nerve dr5 - Sinusitis, Adult dr5 Forms: - Medication Reconciliation Form dr5 - Antibiotic Education dr5 - Patient Portal Instructions dr5 - Leadership Thank You Letter dr5 Prescriptions: - Augmentin 875-125 mg Oral Tablet - take 1 tablet ORAL route every 12 hours for 10 days; 20 tablet; Refills: 0, dr5 Product Selection Permitted - Prednisone 20 mg Oral Tablet - take 1 tablet ORAL route once daily for 5 days; 5 tablet; Refills: 0, Product dr5 Selection Permitted - Cyclobenzaprine 10 mg Oral Tablet - take 1 tablet ORAL route every 8 hours As needed; 30 tablet; Refills: 0, dr5 Product Selection Permitted Signatures: Dispatcher [employer] EDMS Malorie Claire RN RN ll1 Yeni Benites RN RN db Juan Daniel Starr, DIRECTOR STATISTICAL PROGRAMMING-C DIRECTOR STATISTICAL PROGRAMMING-Cdr5 Corrections: (The following items were deleted from the chart) 09:31 09:31 Head Angio+CT.RAD.BRZ ordered. EDMS EDMS 09:31 09:31 Neck Angio+CT.RAD.BRZ ordered. EDMS EDMS 09:32 09:32 Head Brain Wo Cont+CT.RAD.BRZ ordered. EDMS EDMS 09:32 09:32 Chest Single View+RAD.RAD.BRZ ordered. EDSC EDMS 10:20 09:31 Accucheck ordered. dr5 db 11:32 09:31 NPO ordered. dr5 iw
[2024-01-20 13:31] VITALS: TEMP 97.3
[2024-01-20 13:48] VITALS: BP 128/64; O2SAT 98
--- NOTE | 2024-01-22 12:04 | EKG ---
Test Date: 2024-01-20 Test Time: 09:42:44 Creative Coordinator: TM MEASUREMENT RESULTS: Intervals: Rate: 67 NM: 134 QRSD: 86 QT: 432 QTc: 456 [place]: P: 18 NM: 134 QRS: -24 T: -14 INTERPRETIVE STATEMENTS: Normal sinus rhythm Nonspecific T wave abnormality Abnormal ECG Compared to ECG 11/20/2022 09:15:45 T-wave abnormality now present Left-axis deviation no longer present Left ventricular hypertrophy no longer present Electronically Signed On 01-22-24 12:02:49 DIRECTOR OF SALES by Milton Mendoza
== END 2024-01-20 13:19 | disposition home or self-care (01) ==
LOC: ER 09:09
DX: J01.00 Acute maxillary sinusitis, unspecified (principal); M54.12 Radiculopathy, cervical region; E11.9 Type 2 diabetes mellitus without complications; I10 Essential (primary) hypertension
CPT/HCPCS: 93005; 85025; 36415; 85610; 82947; 85730; 84484; 80053; 70450; 70496; 70498; 71045; 99285; Q9967

== ENCOUNTER 2024-02-19 21:41 | Emergency (ER) | payer OTHER, SELFPAY ==
[2024-02-19 23:04] LABS: Absolute Eosinophils 0.2 K/uL (0-0.5); Absolute Lymphocytes (CBC) 4.3 K/uL (0.7-4.9); Absolute Monocytes 0.5 K/uL (0.1-1.3); Absolute Neutrophil 3.4 K/uL (1.8-8.0); Basophils % 0.4 % (0-1.3); Eosinophils % 2.1 % (0-4.4); Hematocrit 46.1 % (36.0-45.0); Hemoglobin 15.8 g/dL (12.0-15.0); Lymphocytes % 51.1 % (15.3-44.8); MCH 30.2 pg (27.0-35.0); MCHC 34.2 g/dL (32.0-36.0); MCV 88.5 fL (80-100); MPV 10.1 fL (7.6-11.3); Monocytes % 5.5 % (3.3-12.3); Neutrophils % 40.9 % (41.7-73.7); Nucleated Red Blood Cells % 0.1 % (0-0); Platelets 159 thou/uL (152-406); RBC Red Blood Cell Count 5.21 M/uL (3.86-4.86); Red Cell Distribution Width 13.3 % (12.1-15.2)
[2024-02-19 23:10] LABS: PT Prothrombin Time 10.4 SECONDS (9.4-12.5); PTT, Activated Partial Thromb 30.4 SECONDS (24.3-36.9); Protime INR 0.99
[2024-02-19 23:11] LABS: Specific Gravity 1.007 (1.005-1.030); Sqamous Epithelial <5 /HPF (None Seen); Urine Bacteria <20 /HPF (<20); Urine Bilirubin NEGATIVE (Negative); Urine Blood Negative (Negative); Urine Clarity Clear (Clear); Urine Color Colorless (Yellow); Urine Culture Reflex Order NOT NEEDED; Urine Glucose 4+ (Over) (Negative); Urine Ketones TRACE (Negative); Urine Microscopic Reflex YN ORDER UMIC; Urine Nitrite NEGATIVE (Negative); Urine Protein NEGATIVE (Negative); Urine RBC <5 /HPF (None Seen); Urine Urobilinogen Normal (Normal); Urine WBC <5 /HPF (<5); Urine pH 5.5 (5.0-7.0)
[2024-02-19 23:12] LABS: Specific Gravity 1.007 (1.005-1.030)
[2024-02-19 23:18] LABS: Barbiturates NEGATIVE (NEGATIVE); Benzodiazepines NEGATIVE (NEGATIVE); Cocaine NEGATIVE (NEGATIVE); METHAMPHETAM NEGATIVE (NEGATIVE); Methadone NEGATIVE (NEGATIVE); Opiates NEGATIVE (NEGATIVE); Phencyclidine NEGATIVE (NEGATIVE); THC Cannibis NEGATIVE (NEGATIVE)
[2024-02-19 23:22] LABS: ALT/SGPT 81 U/L (13-56); AST/SGOT 40 U/L (15-37); Albumin 3.6 g/dL (3.4-5.0); Albumin/Globulin Ratio 0.9 (1.1-1.8); Alkaline Phosphatase 132 U/L (45-117); Anion Gap 10.7 mEq/L (5.0-15.0); BUN Blood Urea Nitrogen 16 mg/dL (7-18); Bicarbonate 25 mEq/L (21-32); Bilirubin Total 0.3 mg/dL (0.2-1.0); Globulin 3.9 g/dL (2.3-3.5); Glomerular Filtration Rate 81 ml/min (=/>90); Glucose Level 328 mg/dL (74-106); Magnesium 2.1 mg/dL (1.6-2.4); NT PRO-BNP 19 pg/mL (<125); Potassium 3.7 mEq/L (3.5-5.1); Protein, Total 7.5 g/dL (6.4-8.2); Sodium Level 140 mEq/L (136-145); Troponin High Sensitivity 4.7 pg/mL (<58.9)
[2024-02-19 23:25] LABS: Bilirubin Direct < 0.2 mg/dL (0-0.2); Bilirubin Indirect, Calculated 0.1 mg/dL (0.2-0.8)
[2024-02-20] MEDS ORDERED: INSULIN REGULAR (HUMAN) 100 UNIT/ML ONE (00:37)
[2024-02-20] MEDS ORDERED: NA CHLORIDE 0.9% 500 ML ONE (00:37)
--- NOTE | 2024-02-20 00:45 | RAD REPORT ---
CLINICAL HISTORY: fall. TECHNIQUE: Noncontrast CT through the head was performed. Axial, coronal, and sagittal reconstructions were crea fidel and sent to PACS. CT of the cervical spine was performed without contrast. Axial, coronal, and sagittal reconstructions were created and sent to PACS. These exams were performed according to our departmental dose-optimization program which includes use of Automated Exposure Control, adjustment of the mA and/or kV according to patient size and/or use of iterative reconstruction technique. COMPARISON: CT head from January 20, 2024. FINDINGS: CT Head: There is no intra-axial or extra-axial bleed seen. There is no mass or mass effect. The ventricles ar e normal in size, shape, and configuration. The orbital contents appear unremarkable. The visualized paranasal sinuses and mastoid air cells are clear. No acute fracture is identified. CT cervical spine: Slightly suboptimal evaluation due to patient body habitus. No acute osseous abnormality identified. Vertebral body height and alignment are maintained. No atlantodental interval widening. Atlantoaxial alignment is maintained. The facet joints are well aligned. The posterior elements are i ntact. The occipital condyles are well aligned with the C1 lateral masses. The transverse foramina are intact. No significant central canal or neuroforaminal narrowing there are the cervical spine. Paraspinal soft tissues: No prevertebral soft tissue swelling. No evidence of epidural hematoma. No a cute findings in the demonstrated portions of the lung apices. IMPRESSION: 1. No acute intracranial abnormality identified. 2. No acute osseous abnormality identified in the cervical spine. Electronically signed by: Lilibeth Malin MD 02/19/2024 11:52 PM [facility] Due to temporary technical issues with the PACS/ImpactFlo reporting system, reports are being celina d by the in-house radiologist without review as a courtesy to ensure prompt reporting the interpreting radiologist is fully responsible for the content of the report. Transcribed Date/Time: 02/20/2024 12:45 AM
--- NOTE | 2024-02-20 01:48 | ER ---
Nurse's Notes [facility] Name: Shanell Hernandez Age: 59 yrs Sex: Female : 1965 Arrival Date: 02/19/2024 Time: 21:41 Bed 14 Private MD: Diagnosis: Other specified diabetes mellitus with hyperglycemia;Alcohol use, unspecified with intoxication Presentation: 02/18 22:47 Chief complaint: EMS states: presented following a fall. Chief complaint: EMS states: aa10 she was said to have hit her head with positive loss of consciousness ,unknown time on arrival patient was conscious, oriented and alert x 4, able to respond to questions, vitals within normal limits as per chart, however she was teary, denied pain at this time, as per EMS neck collar was previously applied but was removed by the patient. Coronavirus screen: Client denies travel out of the [place] in the last 14 days. Ebola Screen: Patient negative for fever greater than or equal to 101.5 degrees Fahrenheit, and additional compatible Ebola Virus Disease symptoms Patient denies exposure to infectious person. Patient denies travel to an Ebola-affected area in the 21 days before illness onset. No symptoms or risks identified at this time. Initial Sepsis Screen: Does the patient meet any 2 criteria? No. Patient's initial sepsis screen is negative. Does the patient have a suspected source of infection? No. Patient's initial sepsis screen is negative. Risk Assessment: Do you want to hurt yourself or someone else? Patient reports no desire to harm self or others. Onset of symptoms was February 19, 2024. Care prior to arrival: None. Activity prior to arrival: teary. 22:47 Method Of Arrival: EMS: [facility] aa10 22:47 Acuity: AGNIESZKA 3 aa10 23:07 Note patient verbalized taking two bottles of alcoholic drinks prior fall. aa10 Triage Assessment: 22:56 General: Appears in no apparent distress. comfortable, obese, well groomed, well aa10 developed, Behavior is cooperative, crying, restless. Pain: Denies pain. EENT: No deficits noted. Tympanic membrane Neuro: No deficits noted. Level of Consciousness is awake, alert, obeys commands, Oriented to person, place, time, situation, Appropriate for age Network Security Engineer are equal bilaterally Moves all extremities. Full function Gait is steady, Speech is normal, Facial symmetry appears normal, Pupils are PERRLA, Intact. Cardiovascular: No deficits noted. Capillary refill < 3 seconds. Respiratory: No deficits noted. Airway is patent. GI: No deficits noted. Abdomen is non-distended. Musculoskeletal: No deficits noted. Circulation, motion, and sensation intact. Capillary refill < 3 seconds. Historical: - Home Meds: 22:56 Lipitor Oral [Active]; lisinopril Oral [Active]; Metformin Oral [Active]; aa10 - PMHx: 22:56 Diabetes - NIDDM; Hyperlipidemia; Hypertension; aa10 - Immunization history:: Adult Immunizations up to date. - Infectious Disease History:: Denies. - Social history:: Smoking status: unknown. Screenin:04 [facility] ED Fall Risk Assessment (Adult) History of falling in the last 3 months, aa10 including since admission Yes- single mechanical fall (1 pt) Confusion or Disorientation No (0 pts) Intoxicated or Sedated No (0 pts) Impaired Gait No (0 pts) Mobility Assist Device Used No (0 pt) Altered Elimination No (0 pt) Score/Fall Risk Level 3 or more points = High Risk Oriented to surroundings, Maintained a safe environment, Educated pt \T\ family on fall prevention, incl call for assistance when getting out of bed, Assessed \T\ reinforced patient's understanding of fall precautions, Provided non-skid footwear, Hourly rounding (assess needs \T\ fall precautionary measures) done, Used ambulatory aids as needed (educated on \T\ assisted with), Implemented a Fall Risk Plan of Care, Apply high fall risk patient identification: yellow non skid footwear/ fall signage. Abuse screen: Denies threats or abuse. Denies injuries from another. Nutritional screening: No deficits noted. Tuberculosis screening: No symptoms or risk factors identified. Assessment: 23:05 General: Appears comfortable, Behavior is calm, cooperative, appropriate for age, aa10 quiet, Smells of Reports Denies fever, feeling ill, fatigue, chills. Pain: Denies pain. Neuro: No deficits noted. Level of Consciousness is awake, alert, obeys commands, Oriented to person, place, time, situation, Appropriate for age Network Security Engineer are equal bilaterally Moves all extremities. Full function Gait is steady, Speech is normal. Cardiovascular: No deficits noted. Capillary refill < 3 seconds. Respiratory: No deficits noted. Airway is patent. Musculoskeletal: No deficits noted. Circulation, motion, and sensation intact. 02/19 00:44 Reassessment: Patient and/or family updated on plan of care and expected duration. Pain br2 level reassessed. Patient is alert, oriented x 3, equal unlabored respirations, skin warm/dry/pink. Patient states feeling better. 00:47 Reassessment: Patient appears in no apparent distress at this time. No changes from aa10 previously documented assessment. Patient and/or family updated on plan of care and expected duration. Pain level reassessed. Patient is alert, oriented x 3, equal unlabored respirations, skin warm/dry/pink. 01:49 Reassessment: patient was able to mobilize unaided , from bed to the rest room and aa10 back, she denied dizziness at this time, will continue plan of care. 01:58 Reassessment: patient has been discharged ,relative has been called for patient pick aa10 up, patient is still in room pending relative arrival. Vital Signs: 02/18 22:47 BP 125 / 81; Pulse 93; Resp 20 S; Temp 98.2; Pulse Ox 92% on R/A; aa10 23:00 BP 120 / 80; Pulse 90; Resp 20 S; Temp 98.2; Pulse Ox 99% on R/A; aa10 02/19 00:44 BP 105 / 81; Pulse 88; Resp 18; Pulse Ox 92% on R/A; br2 01:50 BP 115 / 74; Pulse 84; Resp 20 S; Temp 98.6; Pulse Ox 99% on R/A; aa10 ED Course: 02/18 22:14 Patient arrived in ED. kmf 22:16 Yoni Singh PA is PHCP. cp 22:16 Derek Segura MD is Attending Physician. cp 22:43 Tami Gaming RN is Primary Nurse. aa10 22:43 Acetaminophen Sent. aa10 22:43 ETOH Level Sent. aa10 22:44 Test, Urine Sent. aa10 22:44 Ptt, Activated Sent. aa10 22:44 Salicylate Sent. aa10 22:44 Urinalysis w/ reflexes Sent. aa10 22:44 Urine Drug Screen Sent. aa10 22:51 XRAY Chest (1 view) In Process Unspecified. EDMS 22:56 Triage completed. aa10 22:56 Arm band placed on left wrist. Patient placed in the treatment room, on cardiac aa10 monitor, on pulse oximetry. 23:08 Patient has correct armband on for positive identification. Allergy band placed. Fall aa10 risk band placed. Placed in gown. Bed in low position. Call light in reach. Side rails up X2. Provided Education on: about plan of care. 23:14 CT Head C Spine In Process Unspecified. EDMS 02/19 02:17 No provider procedures requiring assistance completed. aa10 02:18 IV discontinued. aa10 Administered Medications: 00:40 Drug: Insulin Regular Human IVP 10 units IVP once {Co-Signature: br2 (Nadira Chiu RN).} Route: IVP; Site: left antecubital; 01:52 Follow up: Response: No adverse reaction; Marked relief of symptoms aa10 00:40 Drug: NS 0.9% IV 500 ml 500 ml IV at 1 bolus once; to be given as a bolus over 30 aa10 minutes Volume: 500 ml; Route: IV; Rate: 1 bolus; Site: left antecubital; 01:51 Follow up: IV Status: Completed infusion; IV Intake: 500ml aa10 01:52 Follow up: Response: No adverse reaction; Marked relief of symptoms aa10 Medication: 02/18 23:04 VIS not applicable for this client. aa10 Point of Care Testing: Blood Glucose: 02/19 01:49 Blood Glucose: 293 mg/dL; aa10 Ranges: Intake: 01:51 IV: 500ml; Total: 500ml. aa10 Outcome: 01:47 Discharge ordered by . eulalia 02:23 Patient left the ED. aa10 02:38 Discharged to home ambulatory, aa10 02:38 Condition: stable 02:38 Discharge instructions given to patient, Instructed on discharge instructions, follow up and referral plans. Demonstrated understanding of instructions, follow-up care, Prescriptions given X non Signatures: Dispatcher [employer] EDKY Yoni Singh PA PA cp Forrester, Kelsey Maroul [facility] Nadira Chiu RN RN br2 Tami Gaming RN RN aa10 Nadira Chiu RN br2
--- NOTE | 2024-02-20 01:48 | EDPHYS ---
Physician Documentation [facility] Name: Shanell Hernandez Age: 59 yrs Sex: Female : 1965 Arrival Date: 02/19/2024 Time: 21:41 Bed 14 Private MD: ED Physician Derek Segura HPI: 02/18 22:20 This 59 yrs old Female presents to ER via EMS with complaints of Fall Injury. cp 22:20 Details of fall: The patient fell from an upright position, while walking, and struck a concrete surface. Onset: The symptoms/episode began/occurred unknown, found outside by family. reportedly intoxicated. Associated injuries: The patient sustained injury to the head, tenderness. 22:20 Associated signs and symptoms: Pertinent positives; chest pain, reported loss of cp consciousness, Pertinent negatives: fever, vomiting. Historical: - Home Meds: 22:56 Lipitor Oral [Active]; lisinopril Oral [Active]; Metformin Oral [Active]; aa10 - PMHx: 22:56 Diabetes - NIDDM; Hyperlipidemia; Hypertension; aa10 - Immunization history:: Adult Immunizations up to date. - Infectious Disease History:: Denies. - Social history:: Smoking status: unknown. ROS: 22:25 Constitutional: history per hpi cp 22:25 Cardiovascular: Positive for chest pain, 22:25 Abdomen/GI: Negative for vomiting, diarrhea, constipation, Exam: 22:30 Constitutional: The patient appears in no acute distress, alert, awake, cp non-diaphoretic, non-toxic, well developed, well nourished, obese, 22:30 Head/Face: Normocephalic, atraumatic. cp 22:30 Eyes: Periorbital structures: appear normal, Pupils: equal, round, and reactive to light and accomodation, Extraocular movements: intact throughout, Conjunctiva: normal, no exudate, no injection, Sclera: no appreciated abnormality, Lids and lashes: appear normal, bilaterally, 22:30 ENT: External ear(s): are unremarkable, Nose: is normal, Mouth: Lips: moist, Oral mucosa: moist, Posterior pharynx: Airway: no evidence of obstruction, patent, 22:30 Neck: C-spine: vertebral tenderness, is not appreciated, crepitus, is not appreciated, 22:30 Chest/axilla: Inspection: normal, Palpation: is normal, no crepitus, no tenderness, 22:30 Cardiovascular: Rate: normal, Rhythm: regular, Edema: is not appreciated, JVD: is not appreciated, 22:30 Respiratory: the patient does not display signs of respiratory distress, Respirations: normal, no use of accessory muscles, no retractions, labored breathing, is not present, Breath sounds: are clear throughout, no decreased breath sounds, no stridor, no wheezing, 22:30 Abdomen/GI: Inspection: abdomen appears normal, Palpation: abdomen is soft and non-tender, in all quadrants, 22:30 Back: vertebral tenderness, is not appreciated, 22:30 Musculoskeletal/extremity: Exam is negative for decreased range of motion, deformity, injury, 22:30 Neuro: Mentation: able to follow commands, slow to respond, Motor: moves all fours, no focal deficits, 22:43 ECG was reviewed by the Attending Physician. Vital Signs: 22:47 BP 125 / 81; Pulse 93; Resp 20 S; Temp 98.2; Pulse Ox 92% on R/A; aa10 23:00 BP 120 / 80; Pulse 90; Resp 20 S; Temp 98.2; Pulse Ox 99% on R/A; aa10 15 00:44 BP 105 / 81; Pulse 88; Resp 18; Pulse Ox 92% on R/A; br2 01:50 BP 115 / 74; Pulse 84; Resp 20 S; Temp 98.6; Pulse Ox 99% on R/A; aa10 MDM: 02/18 22:17 Medical Screening Exam initiated cp 23:00 Differential diagnosis: alcohol intoxication, illegal drug use, seizure, trauma. 02/19 01:45 Data reviewed: vital signs, nurses notes, lab test result(s), EKG, radiologic studies, cp CT scan, plain films, and as a result, I will discharge patient. 01:45 I considered the following discharge prescriptions or medication management in the emergency department Medications were administered in the Emergency Department. See MAR. Independent interpretation of the following test(s) in the Emergency Department EKG: See my EKG interpretation above. Care significantly affected by the following chronic conditions: Diabetes, Hypertension, Obesity. Counseling: I had a detailed discussion with the patient and/or guardian regarding the historical points, exam findings, and any diagnostic results supporting the discharge/admit diagnosis, lab results, radiology results, to return to the emergency department if symptoms worsen or persist or if there are any questions or concerns that arise at home. Response to treatment: the patient's symptoms have markedly improved after treatment, and as a result, I will discharge patient. 02/18 22:17 Order name: Basic Metabolic Panel; Complete Time: 23:26 cp 02/18 23:26 Interpretation: Normal except: CL 108; GLUC 328; GFR 81. cp 02/18 22:17 Order name: CBC with Diff; Complete Time: 23:26 cp 02/18 23:28 Interpretation: Normal except: RBC 5.21; HGB 15.8; HCT 46.1; OTONIEL% 40.9; LYM% 51.1. cp 02/18 22:17 Order name: LFT's; Complete Time: 23:26 cp 02/18 23:28 Interpretation: Normal except: AST 40; ALT 81; ALK 132; IBILI, CALC 0.1; GLOB 3.9; A/G cp 0.9. 02/18 22:17 Order name: Magnesium; Complete Time: 23:26 cp 02/18 22:17 Order name: NT PRO-BNP; Complete Time: 23:26 cp 02/18 22:17 Order name: PT-INR; Complete Time: : cp 02/18 22:17 Order name: Troponin HS; Complete Time: : cp 02/18 23:30 Interpretation: Reviewed. cp 02/18 22:17 Order name: Acetaminophen; Complete Time: 23:26 cp 02/18 22:17 Order name: ETOH Level; Complete Time: 23:26 cp 02/18 23:29 Interpretation: Reviewed. cp 02/18 22:17 Order name: Test, Urine; Complete Time: 23:26 cp 02/18 22:17 Order name: Ptt, Activated; Complete Time: 23:26 cp 02/18 22:17 Order name: Salicylate; Complete Time: 23:26 cp 02/18 22:17 Order name: Urinalysis w/ reflexes; Complete Time: 23:26 cp 02/18 23:29 Interpretation: Normal except: UGLUC 4+ (Over); UKET TRACE. cp 02/18 22:17 Order name: Urine Drug Screen; Complete Time: :26 cp 02/19 00:48 Interpretation: Reviewed. 02/19 02:00 Order name: Glucose, Ancillary Testing EDMS 02/18 22:17 Order name: XRAY Chest (1 view) cp 02/18 22:17 Order name: CT Head C Spine; Complete Time: 00:47 cp 02/19 00:47 Interpretation: Reviewed report. cp 02/18 22:17 Order name: EKG; Complete Time: 22:18 cp 02/18 22:17 Order name: Cardiac monitoring; Complete Time: 22:19 cp 02/18 22:17 Order name: EKG - Nurse/Tech; Complete Time: 22:44 cp 02/18 22:17 Order name: IV Saline Lock; Complete Time: 22:44 cp 02/18 22:17 Order name: Labs collected and sent; Complete Time: 22:44 cp 02/18 22:17 Order name: O2 Per Protocol; Complete Time: 22:44 cp 02/18 22:17 Order name: O2 Sat Monitoring; Complete Time: 22:44 cp 02/18 22:17 Order name: Suicide Screening (Celina); Complete Time: 22:43 cp EC/14 22:43 Rate is 81 beats/min. Rhythm is regular. CO interval is normal. QRS interval is normal. cp QT interval is normal. T waves are Inverted in lead aVR. Interpreted by me. Reviewed by me. Administered Medications: 02/19 00:40 Drug: Insulin Regular Human IVP 10 units IVP once {Co-Signature: br2 (Nadira Chiu aa10 RN).} Route: IVP; Site: left antecubital; 01:52 Follow up: Response: No adverse reaction; Marked relief of symptoms aa10 00:40 Drug: NS 0.9% IV 500 ml 500 ml IV at 1 bolus once; to be given as a bolus over 30 aa10 minutes Volume: 500 ml; Route: IV; Rate: 1 bolus; Site: left antecubital; 01:51 Follow up: IV Status: Completed infusion; IV Intake: 500ml aa10 01:52 Follow up: Response: No adverse reaction; Marked relief of symptoms aa10 Point of Care Testing: Blood Glucose: 01:49 Blood Glucose: 293 mg/dL; aa10 Ranges: Critical Glucose Levels:Adult <50 mg/dl or >400 mg/dl <40 mg/dl or >180 mg/dl Disposition: 05:19 Co-signature as Attending Physician, Derek Segura MD I agree with the assessment sp4 and plan of care. I reviewed the patient's care provided by the Advanced Practice Provider and agree with the diagnosis and treatment plan. Disposition Summary: 02/20/24 01:47 Discharge Ordered Notes: Location: Home cp Problem: new cp Symptoms: have improved cp Condition: Stable cp Diagnosis - Other specified diabetes mellitus with hyperglycemia cp - Alcohol use, unspecified with intoxication cp Followup: cp - With: Private Physician - When: As needed - Reason: Worsening of condition Discharge Instructions: - Discharge Summary Sheet cp - Alcohol Intoxication cp - Hyperglycemia cp - Blood Glucose Monitoring, Adult cp - Diabetes Mellitus and Exercise cp - Diabetes Mellitus and Nutrition, Adult cp Forms: - Medication Reconciliation Form cp - Antibiotic Education cp - Prescription Opioid Use cp - Patient Portal Instructions cp - Leadership Thank You Letter cp Signatures: Dispatcher [employer] EDMS Yoni Singh PA PA cp Derek Segura MD MD sp4 Tami Gaming RN RN aa10 Nadira Chiu RN br2 Corrections: (The following items were deleted from the chart) 02/18 22:18 22:18 BASIC METABOLIC PANEL+C.LAB.BRZ ordered. EDMS EDMS 22:18 22:18 CBC+H.LAB.BRZ ordered. EDMS EDMS 22:18 22:18 HEPATIC FUNCTION+C.LAB.BRZ ordered. EDMS EDMS 22:18 22:18 MAGNESIUM+C.LAB.BRZ ordered. EDMS EDMS 22:18 22:18 PROBNP+C.LAB.BRZ ordered. EDMS EDMS 22:18 22:18 PROTIME (+INR)+COAG.LAB.BRZ ordered. EDMS EDMS 22:18 22:18 Troponin High Sensitivity+C.LAB.BRZ ordered. EDMS EDMS 22:18 22:18 ACETAMINOPHEN+C.LAB.BRZ ordered. EDMS EDMS 22:18 22:18 ETHANOL+C.LAB.BRZ ordered. EDMS EDMS 22:18 22:18 Test, Urine+UC.LAB.BRZ ordered. EDMS EDMS 22:18 22:18 PTT, ACTIVATED+COAG.LAB.BRZ ordered. EDMS EDMS 22:18 22:18 SALICYLATE+C.LAB.BRZ ordered. EDMS EDMS 22:18 22:18 Urinalysis+U.LAB.BRZ ordered. EDMS EDMS : 22:18 URINE DRUG SCREEN+UC.LAB.BRZ ordered. EDMS EDMS 02/19 01:46 01:42 Constitutional: history per hpi cp cp 01:46 01:42 Cardiovascular: Positive for chest pain, cp cp 01:46 01:42 Abdomen/GI: Negative for vomiting, diarrhea, constipation, cp cp
--- NOTE | 2024-02-20 06:32 | RAD REPORT ---
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 FINDINGS: AP view of the chest was obtained, chest 1 view. Lungs: Normal lung volume. No mass, or consolidation. Normal pulmonary vascularity.. Pleura: No pneumothorax. There is no pleural effusion. Heart and Mediastinum: Cardiac silhouette is borderline enlarged. The aorta is ectatic and tortuous.. Bones: No acute bony abnormality.. IMPRESSION: 1. No acute cardiopulmonary process. Electronically signed by: Moiz Rubio MD 02/19/2024 11:12 PM [employer] BACK TENDER Due to temporary technical issues with the [employer] reporting system, reports are being celina d by the in-house radiologist without review as a courtesy to ensure prompt reporting the interpreting radiologist is fully responsible for the content of the report. Transcribed Date/Time: 02/20/2024 6:32 AM
--- NOTE | 2024-02-21 11:53 | EKG ---
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
[2024-02-22 01:54] VITALS: BP 115/74; TEMP 98.6; O2SAT 99
== END 2024-02-20 02:23 | disposition home or self-care (01) ==
LOC: ER 21:41
DX: E13.65 Other specified diabetes mellitus with hyperglycemia (principal); F10.929 Alcohol use, unspecified with intoxication, unspecified; S09.90XA Unspecified injury of head, initial encounter; E78.5 Hyperlipidemia, unspecified; I10 Essential (primary) hypertension; E66.9 Obesity, unspecified; Y90.8 Blood alcohol level of 240 mg/100 ml or more; W18.39XA Other fall on same level, initial encounter; Y93.01 Activity, walking, marching and hiking; Y92.018 Other place in single-family (private) house as the place of occurrence of the external cause; Y99.9 Unspecified external cause status
CPT/HCPCS: 96361; 93005; 85025; 81001; 80048; 36415; 83735; 81025; 85610; 82947; 80076; 85730; 84484; 83880; 80307; 70450; 72125; 71045; 96374; 99284; 80143; 80179; 82077; J7040